=== PATIENT | female | born 1990 | race Caucasian/White ===

== ENCOUNTER 2019-01-01 22:48 | Emergency (ER) | payer BC ==
[2019-01-01 23:10] VITALS: BP 122/79; PULSE 86; TEMP 98.4
[2019-01-01] MEDS ORDERED: WATER FOR IRRIG, STERILE 1,000 ML BTL IRRIGATION ONE (23:31)
[2019-01-01] MEDS ORDERED: LIDOCAINE 1% INJ 10MG/ML (20 ML MDV) SQ ONE (23:31)
--- NOTE | 2019-01-01 23:51 | XR ---
EXAM: XR Right Foot Complete, 3 or More Views CLINICAL HISTORY: ITS.REASON XR Reason: laceration/rule out foreign body TECHNIQUE: Frontal, lateral and oblique views of the right foot. COMPARISON: No relevant prior studies available. FINDINGS: Bones/joints: Unremarkable. No acute fracture. No dislocation. Soft tissues: Unremarkable. No radiopaque foreign body. IMPRESSION: Normal right foot x-rays.
[2019-01-02] MEDS ORDERED: CEPHALEXIN 500MG STARTER PACK 4 CAP BTL PO STA (01:03)
--- NOTE | 2019-01-02 01:07 | ED ---
Wound/Laceration HPI - General Chief Complaint: Wound/Laceration Stated Complaint: Foot Lac Time Seen by Provider: 01/01/19 23:12 Source: patient, family Mode of arrival: ambulatory Limitations: no limitations - History of Present Illness Initial Comments: 28-year-old female patient presents to the emergency department today for evaluation of laceration to the right foot. Patient states she was walking to this and when she stepped on a glass causing it to break and sliced her foot. Patient was able to get the bleeding under control. Patient states her tetanus vaccine is up-to-date. Patient denies any numbness or tingling to the foot. Denies any difficulty with range of motion. Patient denies any headache, neck pain, back pain, chest pain, shortness of breath, dizziness, weakness, abdominal pain, nausea, vomiting, or difficulties with bowel movements or urination. - Related Data Previous Rx's Medication Instructions Recorded Cephalexin [Keflex] 500 mg PO Q6H #28 cap 01/02/19 Allergies Allergy/AdvReac Type Severity Reaction Status Date / Time No Known Allergies Allergy Verified 01/01/19 23:10 Review of Systems ROS Statement: Those systems with pertinent positive or pertinent negative responses have been documented in the HPI. ROS Other: All systems not noted in ROS Statement are negative. Past Medical History Past Medical History: No Reported History History of Any Multi-Drug Resistant Organisms: None Reported Past Surgical History: No Surgical Hx Reported Past Psychological History: No Psychological Hx Reported Smoking Status: Never smoker Past Alcohol Use History: None Reported Past Drug Use History: None Reported General Exam Limitations: no limitations General appearance: alert, in no apparent distress, other (Physical well- developed, well-nourished adult female patient in no acute distress. Vital signs upon presentation are temperature 98.4F, pulse 86, respirations 20, blood pressure 122/79, pulse ox 99% on room air.) Respiratory exam: Present: normal lung sounds bilaterally. Absent: respiratory distress, wheezes, rales, rhonchi, stridor Cardiovascular Exam: Present: regular rate, normal rhythm, normal heart sounds. Absent: systolic murmur, diastolic murmur, rubs, gallop, clicks Extremities exam: Present: full ROM, normal capillary refill, other (Skin is otherwise pink, warm, and dry. Cap refills less than 3 seconds. Pedal pulses are 2+ and equal bilaterally.). Absent: normal inspection, tenderness, pedal edema, joint swelling, calf tenderness Neurological exam: Present: alert, oriented X3, CN II-XII intact Psychiatric exam: Present: normal affect, normal mood Skin exam: Present: warm, dry, intact, normal color. Absent: rash Course Vital Signs 01/01/19 01/02/19 23:07 01:41 Temperature 98.4 F Pulse Rate 86 Respiratory 20 16 Rate Blood Pressure 122/79 O2 Sat by Pulse 99 Oximetry Medical Decision Making - Medical Decision Making 28-year-old female patient presents to the emergency department today for evaluation of laceration to the plantar surface of the right foot. Physical examination did reveal a 3 cm laceration. I did irrigate the wound extensively, wound exploration revealed no evidence for foreign body however there was evidence for a full or partial laceration of the tendon, most likely the flexor hallucis longus tendon. Patient did exhibit full range of motion of the toes with some without resistance. She has full plantar and dorsiflexion. Laceration was loosely approximated with sutures. Bacitracin applied, dressing applied. She was placed in a postop shoe. She is instructed to remain non- weightbearing to the foot until follow-up with chargemaster specialist, one was recommended to her. Patient is from [place], friend reports that she will be able to contact a friend who is an chargemaster specialist to see her in [place] tomorrow. She is instructed take Tylenol and Motrin for pain control. She is educated regarding wound care. She is started on Keflex. Return parameters were discussed in detail. She verbalizes understanding and agrees with this plan. - Radiology Data Radiology results: report reviewed, image reviewed 3 views of the right foot are obtained. Report was reviewed in its entirety. Impression by Dr. Pal shows normal right foot x-ray. Disposition Clinical Impression: Laceration of left foot with tendon involvement Narrative: Concern for laceration of flexor hallucis longus tendon Disposition: HOME SELF-CARE Condition: Good Instructions (If sedation given, give patient instructions): Laceration (ED), Acute Wound Care (ED), Tendon Laceration (ED) Additional Instructions: Keep post-op shoe in place and remain non-weight bearing until follow up with chargemaster specialist. Alternate Tylenol and Motrin for pain control. Keep foot elevated. Follow-up with chargemaster specialist for recheck as soon as possible. Return to the emergency department immediately for any new, worsening, or concerning symptoms. Prescriptions: Cephalexin [Keflex] 500 mg PO Q6H #28 cap Is patient prescribed a controlled substance at d/c from ED?: No Referrals: Yoan Quinones MD [Medical Doctor] - 1-2 days Time of Disposition: 01:07
[2019-01-02 01:43] VITALS: RESP 16
== END 2019-01-02 01:41 | disposition home or self-care (01) ==
LOC: EC 22:48
DX: S96.921A Laceration of unspecified muscle and tendon at ankle and foot level, right foot, initial encounter (principal); W25.XXXA Contact with sharp glass, initial encounter; Y93.01 Activity, walking, marching and hiking
CPT/HCPCS: 73630; 99283; 12002; J2001